=== PATIENT | female | born 1970 | race Caucasian/White ===

== ENCOUNTER → 2017-09-01 08:49 | Outpatient (CLI) | payer OTHER, SELFPAY ==
--- NOTE | 2017-09-01 09:45 | BRBX_PTH ---
PATIENT: CHAN RUBIO LOC: [facility] U#:[id number] AGE/SX: 54/F ROOM: RE09/01/[address]: Dr. Renée Sommer MD : [id number] BED: DIS: SPEC #: [id number] RECD: 09/01/17 14:42 STATUS: RUBEN REJonny #: [id number] LISE: 09/01/17 09:[address]: Renée Sommer DEPT: SURGICAL PATHOLOGY RECD BY: Zeke Ray ENTERED: 09/01/17 14:43 SP TYPE: BREAST BX OTHR DR: Dr. Andry Diaz MD Tissues: Right breast, NOS Procedures: Surgery Specimen Level IV HEADER OPERATION: Right breast stereotactic needle core biopsy PRE-OP DIAGNOSIS: Inferior right breast density 1.2 cm TISSUE SUBMITTED: Right breast ISCHEMIC TIME: 2 minutes FIXATION TIME: 9 hours MICROSCOPIC DIAGNOSIS Right breast, stereotactic needle core biopsy: Mild nonproliferative fibrocystic change. Focal involutional change. No evidence of malignancy. AM:yesy 09/02/17 MICROSCOPIC DESCRIPTION Slides are reviewed. GROSS DESCRIPTION Received in fixative is one container labeled with the patient's name and designated right breast. The specimen consists of multiple elongated fragments of hong-yellow fibroadipose tissue that in aggregate measure 7.5 x 3 x 0.3 cm. The entire specimen is submitted in five cassettes. / SJ:yesy 09/01/17 TC:5 CPT: 77057
--- NOTE | 2017-09-03 12:54 | OP.PCM_ITS ---
Report of Operation Date of Procedure: 09/01/17 Pre-Operative Diagnosis: abnormal right breast mammograms Post-Operative Diagnosis: same Surgery/Procedure Performed:: right stereotactic breast biopsy Description of Surgical Findings:: very inferior lesion on mammograms - medial Specimen's removed: right breast tissue Estimated Blood Loss (mL): < 1 ml Description of Procedure: After informed consent was given, the patient was brought into the breast biopsy suite and then placed in the prone position on the stereotactic biopsy table. The patient?s right breast was then placed in the opening at the head of the table. A financial counselor compression mammogram was then obtained in the lateral view. The suspicious radiological lesion was then identified. Stereo pictures of the lesion were then taken for XYZ coordinates. The Mammotome biopsy stylus was then positioned where it would be entering into the patient?s breast. The skin at this site was then cleansed with a surgical skin preparation. The skin and subcutaneous tissues at this site were then infiltrated with 1% xylocaine. A small skin incision was made with an 11 blade scalpel. The biopsy stylus was then positioned into the patient?s breast at the proper coordinates of depth. Using the Mammotome vacuum-assist device, several core samples of breast tissue were obtained. A hemostatic marker clip was then placed into the biopsy cavity and a financial counselor film revealed that it was properly deployed. The patient was then placed in the supine position and pressure was applied to the breast until no active bleeding was noted. Steristrips were applied to reapproximate the skin. A unilateral mammogram in the CC and MLO view were then taken which revealed that the marker clip was in the same area as the previous suspicious lesion. The patient tolerated the procedure well and was discharged from the breast biopsy suite in good condition. Grafts/Implants Used: Mammotome clip [id number] - Complications none noted - Admit VTE Documentation VTE Present on Admission: No - low risk procedure for DVT/PE
== END ==
PROVIDERS: Family Provider Family Medicine; PCP Family Medicine; Visit Provider Surgery
DX: N60.11 Diffuse cystic mastopathy of right breast (principal)
CPT/HCPCS: 19081; 88305; J7050; A4648